=== PATIENT | male | born 1985 | race Caucasian/White ===

== ENCOUNTER 2016-08-03 10:56 | Emergency (ER) | payer OTHER ==
[2016-08-03 11:04] VITALS: BP 110/60
[2016-08-03] MEDS ORDERED: Ibuprofen TAB* 800 MG PO ONE (13:06)
--- NOTE | 2016-08-03 13:41 | RAD ---
INDICATION: Facial trauma evaluate for fracture of the mandible. COMPARISON: There are no prior studies available for comparison. TECHNIQUE: Contiguous axial sections of the axial images of the facial bones were obtained and reconstructed in the coronal and sagittal planes. FINDINGS: The euceda of the orbits and maxillary sinuses appear intact. The zygomatic arches appear intact. There is no evidence for a fracture of the mandible. The nasal bones appear intact. There is moderate deviation of the nasal septum toward the left side. The pterygoid plates appear intact. The paranasal sinuses appear clear. IMPRESSION: NO EVIDENCE OF FRACTURE.
--- NOTE | 2016-08-03 14:23 | ED ---
Head Injury - History Of Current Complaint Chief Complaint: EDGeneral Stated Complaint: JAW INJURY Pain Intensity: 3 PMH/Surg Hx/FS Hx/Imm Hx Infectious Disease History: Denies: Traveled Outside the [place] in Last 30 Days - Social History Alcohol Use: Occasionally Substance Use Type: Reports: None Smoking Status (MU): Former Smoker Physical Exam Vital Signs On Initial Exam: Initial Vitals Temp Pulse Resp BP Pulse Ox 97.6 F 63 18 110/60 100 08/03/16 11:03 08/03/16 11:03 08/03/16 11:03 08/03/16 11:03 08/03/16 11:03 Diagnostics - Vital Signs Vital Signs Temp Pulse Resp BP Pulse Ox 08/03/16 11:03 97.6 F 63 18 110/60 100 - Laboratory Lab Statement: Any lab studies that have been ordered have been reviewed, and results considered in the medical decision making process. - CT maxillofacial CT Interpretation: No Acute Changes - NO EVIDENCE OF FRACTURE OR DISLOCATION. CT Interpretation Completed By: Radiologist Head Injury Course/Dx - Diagnoses Differential Diagnosis/HQI/PQRI: Concussion Without LOC, Contusion, Hematoma, Mandible Fracture, Nasal Fracture, Orbital Fracture, Skull Fracture, Zygomatic Fracture Provider Diagnoses: Hematoma of jaw, Contusion Discharge - Discharge Plan Condition: Stable Disposition: HOME Patient Education Materials: Hematoma (ED) Additional Instructions: Take ibuprofen or aleve for pain and inflammation. Continue applying ice to the area. Eat and drink foods that you can tolerate. Rest area and let heal. If symptoms worsen or do not improve please seek medical attention.
== END 2016-08-03 15:04 | disposition home or self-care (01) ==
LOC: ED 10:56
DX: S00.83XA Contusion of other part of head, initial encounter (principal); X58.XXXA Exposure to other specified factors, initial encounter; Y93.9 Activity, unspecified; Y92.9 Unspecified place or not applicable; Z87.891 Personal history of nicotine dependence
CPT/HCPCS: 70486; 99282; A9270-GY